=== PATIENT | male | born 1950 | race Hispanic/Latino ===

== ENCOUNTER 2018-12-26 00:01 | Emergency (ER) | payer MEDICARE ==
[2018-12-26 00:45] LABS: HEMATOCRIT 39.7 % (39.0-50.0); HEMOGLOBIN 13.4 g/dl (14.0-18.0); IMMATURE GRANULOCYTES 0.5 % (0.0-5.0); MEAN CELL VOLUME 93.6 fL CALC (80.0-100.0); MEAN CORPUSCULAR HGB 31.6 pG CALC (26.0-32.0); MEAN CORPUSCULAR HGB CONC 33.8 g/L CALC (32.0-36.0); NEUT# 4.23 thou/uL (1.82-7.42); RED BLOOD COUNT 4.24 mill/uL (4.70-6.10); RED CELL DISTRI WIDTH 12.1 % (11.5-15.5)
[2018-12-26 01:01] LABS: URINE BILIRUBIN - DIPSTICK NEGATIVE (NEGATIVE); URINE BLOOD DIPSTICK MODERATE (NEGATIVE); URINE COLOR YELLOW; URINE GLUCOSE - DIPSTICK NEGATIVE (NEGATIVE); URINE KETONE NEGATIVE (NEGATIVE); URINE LEUK ESTERASE NEGATIVE (NEGATIVE); URINE NITRITE - DIPSTICK NEGATIVE (Negative); URINE PROTEIN - DIPSTICK NEGATIVE (NEG-TRACE); URINE SPECIFIC GRAVITY 1.015; URINE UROBILINOGEN - DIPSTICK 0.2 E.U./dL (0.2)
[2018-12-26 01:02] LABS: URINE SQUAMOUS EPITHELIAL CELL FEW EPI/hpf (0-FEW)
[2018-12-26 01:06] LABS: ALBUMIN 4.2 g/dL (3.2-5.0); ALKALINE PHOSPHATASE 100 u/l (38-126); ANION GAP 14 (6-22 (CALC)); BILIRUBIN, TOTAL 0.4 mg/dL (0.0-1.4); BUN 23 mg/dL (8-23); BUN/CREATININE RATIO 17 (12-20 (CALC)); CARBON DIOXIDE 26 mmol/l (22-30); CHLORIDE 105 mmol/l (95-108); CREATININE 1.3 mg/dL (0.7-1.3); GFR 55 ML/MIN (>=60 (CALC)); GFR FOR AFR.AMER. > 60 ML/MIN (>=60 (CALC)); POTASSIUM 4.1 mmol/l (3.5-5.1); SGOT/AST 33 u/l (19-48); SODIUM 140 mmol/l (137-146); TOTAL PROTEIN 7.7 g/dL (6.3-8.2)
[2018-12-26 01:12] LABS: AMYLASE 59 u/l (30-110); LIPASE 178 u/l (23-300)
[2018-12-26] MEDS ORDERED: TAMSULOSIN0.4 MG PO (02:22)
[2018-12-26] MEDS ORDERED: LORTAB 5/3255 MG PO (02:22)
[2018-12-26 02:35] VITALS: BP 156/77
[2018-12-29] MEDS ORDERED: AMLODIPINE BESYL5 MG PO (10:21)
[2018-12-29] MEDS ORDERED: LOPRESSOR25 MG PO (10:21)
[2018-12-29] MEDS ORDERED: KEFLEX500 MG PO (10:21)
[2018-12-29] MEDS ORDERED: MEDDOSEPAK PO (10:21)
[2018-12-29] MEDS ORDERED: TAMSULOSIN0.4 MG PO (10:21)
[2018-12-29] MEDS ORDERED: LORTAB 5/3255 MG PO (10:28)
== END 2018-12-26 02:46 | disposition home or self-care (01) ==
LOC: ED 00:01
PROVIDERS: Family Medicine
DX: N20.0 Calculus of kidney (principal)

== ENCOUNTER 2019-01-21 11:42 | Day surgery (SDC) | payer MEDICARE ==
[~2019-01-21] VITALS: Ht 167.6 cm; Wt 99.8 kg
[~2019-01-21 11:42] MED LIST: AMLODIPINE BESYL5 MG PO; KEFLEX500 MG PO; LOPRESSOR25 MG PO; LORTAB 5/3255 MG PO; MEDDOSEPAK PO; TAMSULOSIN0.4 MG PO; [UNRECOGNIZED DRUG - OTHER] PO
[2019-01-21] MEDS ORDERED: PERCOCET 10/31 COMBO PO (16:20)
[2019-01-21 17:09] VITALS: BP 158/84
== END 2019-01-21 17:25 | disposition home or self-care (01) ==
LOC: ORM 11:42
PROVIDERS: ATTEND Urology
PROC: 0TP98DZ Removal of Intraluminal Device from Ureter, Via Natural or Artificial Opening Endoscopic (ICD-10-PCS; principal; 2019-01-21)
DX: N20.1 Calculus of ureter (principal)
CPT/HCPCS: C1769; Q9967

== ENCOUNTER 2024-01-17 05:35 | Emergency (ER) | payer MEDICARE ==
[~2024-01-17] VITALS: Ht 167.6 cm; Wt 115.0 kg
[2024-01-17] VITALS (11 sets, daily range): BP systolic 155–225; BP diastolic 73–113
[~2024-01-17 05:35] MED LIST changes: +PERCOCET 10/31 COMBO PO
[2024-01-17] MEDS ORDERED: ONDANSETRON HCl 4 MG/2 ML SDV IV ONE (06:30)
[2024-01-17] MEDS ORDERED: MORPHINE SULFATE 4 MG/ML VIAL IV ONE (06:30)
[2024-01-17 06:49] LABS: BASO% 0.3 % (0-3); EOS% 2.1 % (0-8); HEMATOCRIT 36.8 % (39.0-50.0); HEMOGLOBIN 11.8 g/dl (14.0-18.0); IMMATURE GRANULOCYTES 0.5 % (0.0-5.0); LYMPH% 14.8 % (15-41); MEAN CELL VOLUME 97.1 fL CALC (80.0-100.0); MEAN CORPUSCULAR HGB 31.1 pG CALC (26.0-32.0); MEAN CORPUSCULAR HGB CONC 32.1 g/dL CAL (32.0-36.0); MONO% 7.6 % (2-13); NEUT# 11.02 thou/uL (1.82-7.42); NEUT% 74.7 % (42-76); RED BLOOD COUNT 3.79 mill/uL (4.70-6.10); RED CELL DISTRI WIDTH 12.3 % (11.5-15.5)
[2024-01-17 07:02] LABS: ALBUMIN 4.1 g/dL (3.2-5.0); BILIRUBIN, TOTAL 0.3 mg/dL (0.2-1.3); CREATININE 1.7 mg/dL (0.7-1.3); POTASSIUM 4.3 mmol/l (3.5-5.1); TOTAL PROTEIN 7.4 g/dL (6.3-8.2)
[2024-01-17 07:25] LABS: URINE BILIRUBIN - DIPSTICK Negative (NEGATIVE); URINE BLOOD DIPSTICK Moderate (NEGATIVE); URINE CLARITY Clear; URINE GLUCOSE - DIPSTICK 100 mg/dL (NEGATIVE); URINE KETONE Negative (NEGATIVE); URINE LEUK ESTERASE Negative (Negative); URINE NITRITE - DIPSTICK Negative (Negative); URINE PH 5.5 (4.5-8.0); URINE PROTEIN - DIPSTICK 30 mg/dL (NEG-TRACE); URINE UROBILINOGEN - DIPSTICK 0.2 E.U./dL (0.2)
[2024-01-17 07:26] LABS: URINE COLOR Yellow
[2024-01-17 07:34] LABS: URINE RBC 25-50 RBC/hpf (0-5); URINE SQUAMOUS EPITHELIAL CELL FEW EPI/hpf (0-FEW); URINE WBC 0-2 WBC/hpf (0-5)
[2024-01-17] MEDS ORDERED: KETOROLAC TROMETHAMINE 15 MG/ML SDV IV ONE (07:55)
[2024-01-17] MEDS ORDERED: SODIUM CHLORIDE 0.9% 1,000 ML IV ONE (08:05)
[2024-01-17] MEDS ORDERED: TORADOL PO (08:46)
[2024-01-17] MEDS ORDERED: TAMSULOSIN0.4 MG PO (08:46)
[2024-01-17] MEDS ORDERED: HYDROCO/APAP1 TA9 PO (08:46)
[2024-01-17] MEDS ORDERED: LEVOFLOXACIN750 MG PO (08:46)
== END 2024-01-17 09:37 | disposition home or self-care (01) ==
LOC: ED 05:35
PROVIDERS: Emergency Medicine
DX: N20.1 Calculus of ureter (principal); N39.0 Urinary tract infection, site not specified; I10 Essential (primary) hypertension; Z87.442 Personal history of urinary calculi